=== PATIENT | female | born 1960 | race Caucasian/White ===

== ENCOUNTER → 2017-01-07 | Outpatient (CLI) | payer OTHER ==
[~2017-01-07] MED LIST: ASCO1CAP3 PO; CALCTAB5 PO; CARB25TA12 PO; CARI350T28 PO; CHOL100040 PO; CLOB-65 EXT; CYAN500T PO; FERR1TAB23 PO; FLUO20CA35 PO; GABA-113 PO; KETO2CRE14 EX; MAGN500T15 PO; SIMV20TA2 PO; TRIA37.5 PO
--- NOTE | 2017-01-08 07:48 | MAMMOGRAPHY REPORT ---
UNILATERAL RIGHT DIGITAL DIAGNOSTIC MAMMOGRAM TOMOSYNTHESIS WITH CAD AND TARGETED RIGHT ULTRASOUND: 1 03/09/2016 CLINICAL HISTORY: 56-year-old woman called back from screening mammography for a newly visualized 7 m m nodular asymmetry in the lateral right breast. She has a history of 2 prior benign cysts identifie d in the right breast on prior targeted ultrasound. TECHNIQUE: Spot compression right CC and MLO 2-D and tomosynthesis images were obtained. COMPARISON: Comparison is made to exams dated: 01/02/2017 mammogram, 12/30/2015 mammogram, 01/07/2015 ultrasound, 01/07/2015 mammogram, 12/27/2014 mammogram, and 04/03/2013 mammogram - [facility] [place]. BREAST COMPOSITION: There are scattered areas of fibroglandular density in the right breast. FINDINGS: The additional spot compression views of the right upper outer quadrant demonstrate persist ence of 2 dominant lobulated and circumscribed masses in the upper outer posterior and retroareolar p osterior breast, measuring 11 x 8 x 7 mm, and 10 x 10 x 7 mm, respectively. These were previously do cumented to represent anechoic simple cysts on ultrasound. There are other partially circumscribed a nd obscured masses identified on the spot compression views and tomosynthesis images. In particular, an oval circumscribed low density mass in the upper outer middle one third of the breast measures 5 x 6 x 5 mm, and another possible partially circumscribed and obscured mass in the approximate 9:00 po sterior breast measures 11 x 6 x 6 mm. No associated distortion or other areas of architectural dist ortion in the visualized right breast. No new suspicious calcifications. Targeted ultrasound was performed in the lateral right breast. In the 6:00 axis, 2 cm from the nippl e, a lobulated anechoic benign simple cyst is again identified, measuring 8.5 x 3.3 x 9.8 mm. In the 7:00 right breast, 5 cm from the nipple, a lobulated anechoic benign simple cyst is again identified measuring 8.9 x 4.9 x 8.7 mm. A small cluster of microcysts identified in the 10:00 right breast, 4 cm from the nipple, measuring 8.0 x 2.7 x 5.4 mm, and another small cluster of microcysts is identif ied in the 11:00 right breast, 2 cm from the nipple, measuring 7.9 x 2.7 x 6.9 mm. There is a hypoec hoic lobulated solid versus cystic mass in the 10:00 right breast, 1 cm from the nipple, 2-1/2 cm ana m p to the dermis, measuring approximately 3.0 x 3.0 x 2.8 mm. Although this could represent an additi onal cyst, it is indeterminate and could represent a complicated cyst or solid mass. Definitive jaron acterization with ultrasound-guided cyst aspiration versus core needle biopsy is recommended. Correl ation with post procedure mammograms is also recommended, given the numerous mammographic masses unsu re which this correlates with. IMPRESSION: ACR BI-RADS CATEGORY 4: SUSPICIOUS, TARGETED ULTRASOUND ACR BI-RADS CATEGORY 4: SUSPICIO US There are anechoic benign simple cysts and microcystic clusters in the lateral right breast on ultras ound, compatible with benign fibrocystic changes. However, there is a small 3 mm indeterminate solid versus cystic mass in the 10:00 right breast, 1 cm from the nipple, 2-1/2 cm deep to the dermis. De finitive characterization of this mass with ultrasound-guided cyst aspiration versus core needle biop sy is recommended. Correlation with postprocedure tomosynthesis mammograms is also recommended. These results and recommendations were discussed with the patient at the time of the exam. She tenta tively scheduled the biopsy prior to leaving our department. Approximately 10% of breast cancers are not detected with mammography. A negative mammographic report should not delay biopsy if a clinically suggestive mass is present. Lisette Paulino M.D. ay/:01/07/2017 15:20:07 Financial Systems Director: Germaine WALL(R)(Hanh), [facility] letter sent: Abnormal 4/5 BI-RADS Code: ACR BI-RADS Category 4: Suspicious Ultrasound BI-RADS: ACR BI-RADS Category 4: Suspici ous
== END | disposition home or self-care (01) ==
LOC: C.MAMM 13:42
PROVIDERS: ATTEND Obstetrics & Gynecology
DX: N63.0 Unspecified lump in unspecified breast (principal); R92.8 Other abnormal and inconclusive findings on diagnostic imaging of breast

== ENCOUNTER → 2017-01-16 | Outpatient (CLI) | payer OTHER ==
--- NOTE | 2017-01-16 08:35 | Discharge Instructions ---
Discharge Instructions Procedure Procedure Date: Jan 16, 2017. Reason for visit: Right Breast Mass. Discharge Discharge Date: Jan 16, 2017. Discharge Diagnosis: post right breast ultrasound guided core biopsy Instructions Activity Recommendations: Additional Limitations (see below) Return to School/Work: no limitations Recommended Home Diet: No Limitations Provider Instructions: ACTIVITY RECOMMENDATIONS: * No lifting, pushing, pulling or exercising the affected side for three days. RETURN TO SCHOOL/WORK: * You may return to work/school after the procedure, but do not perform any strenuous activities for 24 to 48 hours. MEDICATIONS: * Tylenol (two 325 mg) every four to six hours if needed for mild pain (if not allergic to Tylenol). DIET: * Resume previous diet. SPECIAL CARE INSTRUCTIONS: * Keep biopsy site dry for 24 hours. May shower after 24 hours, but do not soak (bathe) incision. * May remove Tegaderm (plastic patch) tomorrow AFTER showering. * Leave the steri-strips on for one week. Allow the steri-strips to fall off by themselves. If not off after one week, you may remove them. You may place a Bandaid crosswise over the strips, if desired. * Apply ice 10 minutes on and 10 minutes off as needed. * Wear a bra at bedtime to sleep more comfortably for 2-3 days. * Your referring physician should have the results after approximately 5 to 7 business days. * Call for unusual bleeding, fever, drainage, etc or if you have any questions call [phone] during normal business hours or after hours call Dr Paulino, . FOLLOW UP VISIT: Follow-up with Referring Physician as scheduled. Allergies Coded Allergies: Dust (Verified Allergy, Mild, 03/06/13) Molds and Smuts (Verified Allergy, Mild, 03/06/13) Codeine (Verified Allergy, Unknown, RASH FROM TYLENOL #3. HAS TOLERATED PERCOCET W/O PROBLEMS, 09/12/12) Uncoded Allergies: mildew (Allergy, Mild, 02/24/08) Kimberlee Marion Recommendations: Call your doctor if: * Temperature above 101 degrees * Pain not relieved by pain medicine ordered * There is increased drainage or redness from any incision * You have any unanswered questions or concerns. Your Doctors Instructions noted above were prepared by provider Lisette Paulino. Patient Signature Section: Patient Instructions Signature Page Lila Bandaaarti Patient (or Guardian) Signature/Date: I have read and understand the instructions given to me by my caregivers. Caregiver/RN/Doctor Signature/Date: The above-named patient and/or guardian has received patient instructions on this date. + Original Patient Signature Page (only) stays with chart. Please make copy for patient.
--- NOTE | 2017-01-16 15:19 | MAMMOGRAPHY REPORT ---
ULTRASOUND GUIDED BIOPSY RIGHT BREAST: 01/16/2017 CLINICAL HISTORY: Indeterminate 3 mm hypoechoic mass in the 10:00 right breast identified on ultrasou nd. Patient presents for ultrasound-guided core biopsy. COMPARISON: Comparison is made to exams dated: 01/07/2017 ultrasound, 01/07/2017 mammogram, 01/02/2017 mammogram, 12/30/2015 mammogram, 01/07/2015 ultrasound, and 01/07/2015 mammogram - [facility]. PATIENT CONSENT: The procedure, risks and benefits were discussed with the patient and informed conse nt was obtained both verbally and in writing. Specific risks to this procedure include: bleeding, in fection, puncture of adjacent structure, nontarget biopsy, sampling error, pain, metal allergy and me dication reaction. PROCEDURE DESCRIPTION: A time out was performed and the right breast was agreed as the site of biopsy . The skin was prepped and draped in the usual sterile fashion. The solid mass in the deep 10:00 righ t breast was chosen as the target for biopsy. Subcutaneous and intraparenchymal 1% buffered lidocaine , with and without epinephrine, was administered as local anesthesia. A skin incision was made. Thro ugh the incision, 4 samples were taken with a 14 gauge Achieve biopsy device. A ribbon shaped metalli c marker was placed at the biopsy site. Hemostasis was achieved after manual compression. The patient tolerated the procedure well and there was no immediate complication. The samples were sent to the pathology department in an appropriately labeled container. Postprocedure right CC and ML tomosynthesis images were obtained. A new ribbon-shaped biopsy marker clip is seen in the 10:00 posterior right breast, denoting the site of recent ultrasound-guided core biopsy. The prominent nodular asymmetry in the lateral right breast seen on recent screening mammogr aphy persists and is slightly lateral to the biopsy marker clip on the CC view. Although this most l ikely represents one of the cysts seen on targeted ultrasound, depending benign pathology results, re commend follow-up diagnostic tomosynthesis mammograms and possible ultrasound of the right breast in 6 months. IMPRESSION: ULTRASOUND GUIDED BIOPSY Status post ultrasound-guided core biopsy of an indeterminate 3 mm mass in the 10:00 right breast, wi th ribbon-shaped biopsy marker clip placed at the site. Depending benign pathology results, a follow-up right diagnostic tomosynthesis mammogram and possible ultrasound is recommended to ensure stability in 6 months. The patient will receive notification of the biopsy results from her referring physician. Lisette Paulino M.D. ay/:01/16/2017 09:56:07 Merchandise Flow Manager: Sasha Hirsch, [facility]
--- NOTE | 2017-01-16 15:21 | MAMMOGRAPHY REPORT ---
UNILATERAL RIGHT DIGITAL DIAGNOSTIC MAMMOGRAM TOMOSYNTHESIS: 01/16/2017 CLINICAL HISTORY: Status post ultrasound-guided core biopsy of a tiny 3 mm mass in the 10:00 right br east, 1 cm from the nipple. Please refer to the report from right breast ultrasound-guided core biopsy performed at the same time for full detail. IMPRESSION: POST PROCEDURE IMAGING FOR MARKER PLACEMENT Please refer to the report from right breast ultrasound-guided core biopsy performed at the same time for full detail. Approximately 10% of breast cancers are not detected with mammography. A negative mammographic report should not delay biopsy if a clinically suggestive mass is present. Lisette Paulino M.D. ay/:01/16/2017 08:34:01 Skin Care Therapist: Sasha Hirsch, [facility] BI-RADS Code: Post Procedure Imaging For Marker Placement
== END | disposition home or self-care (01) ==
LOC: C.MAMM 07:52
PROVIDERS: ATTEND Obstetrics & Gynecology
DX: N63.0 Unspecified lump in unspecified breast (principal)

== ENCOUNTER → 2017-07-15 | Outpatient (CLI) | payer OTHER ==
[2017-07-15 18:13] LABS: BLOOD UREA NITROGEN 17 mg/dl (7-18); CALCIUM 8.6 mg/dl (8.5-10.1); CARBON DIOXIDE 24 mmol/L (21-32); CREATININE 0.95 mg/dl (0.60-1.20); GLUCOSE 96 mg/dl (70-99); POTASSIUM 3.8 mmol/L (3.5-5.1); SODIUM 139 mmol/L (136-145)
== END | disposition home or self-care (01) ==
LOC: C.LABPVFM 16:00
PROVIDERS: ATTEND Nurse Practitioner
DX: I10 Essential (primary) hypertension (principal); E03.9 Hypothyroidism, unspecified